=== PATIENT | female | born 2000 | race Caucasian/White ===

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

== ENCOUNTER 2021-03-12 18:27 | Emergency (ER) | payer OTHER ==
[~2021-03-12] VITALS: Ht 160 cm; Wt 54.5 kg
[~2021-03-12 18:27] MED LIST: AMOXICILLIN875 MG PO; INDERAL 10MG10 MG PO; MIRENA52 MG IY; PROZAC60 MG
[2021-03-12 20:21] LABS: BASO # 0.1 (0.0-0.2); BASO % 0.6 % (0.0-2.0); EOS # 0.3 (0.0-0.7); EOS % 3.4 % (0-4.0); HEMATOCRIT 42.1 % (35.0-45.0); HEMOGLOBIN 14.1 g/dl (12.0-15.0); LYMPH # 2.5 (1.2-3.4); LYMPH % 26.4 % (20.0-51.0); MEAN CELL VOLUME 91 fl (80.0-95.0); MEAN CORPUSCULAR HEMOGLOBIN 31 pg (26.0-32.0); MEAN CORPUSCULAR HGB CONC 34 g/dl (33.0-37.0); MONO # 0.6 (0.1-0.6); MONO % 6.3 % (1.7-9.3); PLATELET COUNT 330 K/mm3 (130-400); RED BLOOD COUNT 4.62 M/mm3 (4.10-5.30); REDCELL DISTRIBUTION WIDTH-CV 12.6 % (11.5-14.5)
[2021-03-12 20:44] LABS: ALBUMIN 4.1 gm/dL (3.5-5.0); BILIRUBIN,TOTAL 0.4 mg/dL (0.2-1.2); CALCIUM 9.3 mg/dL (8.4-10.2); CREATININE, serum 0.79 mg/dL (0.57-1.11); POTASSIUM 3.5 mmol/L (3.5-4.5); TOTAL PROTEIN 7.1 gm/dL (6.2-8.1)
[2021-03-12 21:23] VITALS: BP 108/73; PULSE 72; TEMP 97.8
== END 2021-03-12 21:23 | disposition home or self-care (01) ==
LOC: COL.ER 18:27
PROVIDERS: Family Medicine
DX: S49.91XA Unspecified injury of right shoulder and upper arm, initial encounter (principal); Q78.0 Osteogenesis imperfecta; W86.8XXA Exposure to other electric current, initial encounter

== ENCOUNTER → 2021-08-20 | Outpatient (CLI) | payer OTHER ==
[2021-08-20 11:54] LABS: HEMATOCRIT 43.6 % (35.0-45.0); HEMOGLOBIN 14.4 g/dl (12.0-15.0); MEAN CELL VOLUME 92 fl (80.0-95.0); MEAN CORPUSCULAR HEMOGLOBIN 30 pg (26-32); MEAN CORPUSCULAR HGB CONC 33 g/dl (33.0-37.0); MEAN PLATELET VOLUME 9.2 fl (7.4-10.4); PLATELET COUNT 287 K/mm3 (130-400); RED BLOOD COUNT 4.73 M/mm3 (4.10-5.30); REDCELL DISTRIBUTION WIDTH-CV 13.3 % (11.5-14.5)
[2021-08-20 12:06] LABS: CALCIUM 8.9 mg/dL (8.4-10.2); CREATININE, serum 0.72 mg/dL (0.57-1.11); POTASSIUM 3.9 mmol/L (3.5-4.5)
== END ==
LOC: COL.LAB 10:43
PROVIDERS: Physician Assistant
DX: R07.89 Other chest pain (principal); R07.1 Chest pain on breathing; Z86.16 Personal history of COVID-19

== ENCOUNTER 2022-09-06 19:45 | Emergency (ER) | payer OTHER ==
[~2022-09-06] VITALS: Ht 160 cm; Wt 47.7 kg
[~2022-09-06 19:45] MED LIST changes: +BENTYL 20MG20 MG/TAB PO; +EMGALITY120 MG/1 M SQ; +ZOFRAN ODT4 MG PO; +ZOLOFT 50MG50 MG PO
[2022-09-06 20:25] LABS: BASO % 0.4 % (0.0-2.0); EOS # 0.7 K/mm3 (0.0-0.7); EOS % 6.6 % (0.0-4.0); GRAN # 4.7 K/mm3 (1.4-6.5); GRAN % 45.9 % (42.2-75.2); HEMATOCRIT 40.9 % (37.0-47.0); HEMOGLOBIN 14.3 g/dl (12.5-16.0); LYMPH # 4.3 K/mm3 (1.2-3.4); LYMPH % 41.5 % (20.0-51.0); MEAN CELL VOLUME 87 fl (80.0-100.0); MEAN CORPUSCULAR HEMOGLOBIN 30 pg (27-31); MEAN CORPUSCULAR HGB CONC 35 g/dl (33.0-37.0); MEAN PLATELET VOLUME 9.5 fl (7.4-10.4); MONO # 0.6 K/mm3 (0.1-0.6); MONO % 5.4 % (1.7-9.3); PLATELET COUNT 372 K/mm3 (130-400)
[2022-09-06 20:32] LABS: SQUAMOUS EPITHELIAL 0-2 /hpf (0-10); URINE BACTERIA Rare /hpf (NONE SEEN); URINE RBC 0-2 /hpf (0-2); URINE WBC 0-2 /hpf (0-2)
[2022-09-06 20:34] LABS: COLLECTION METHOD CLEAN CATCH; URINE APPEARANCE Clear (CLEAR/HAZY); URINE BLOOD Negative (NEGATIVE); URINE COLOR Yellow (YELLOW); URINE GLUCOSE Negative (NEGATIVE); URINE KETONE Negative (NEGATIVE); URINE NITRATE Negative (NEGATIVE); URINE PROTEIN(semi-quant) Negative (NEGATIVE); URINE UROBILINOGEN 0.2 E.U/dL (0.2-1.0)
[2022-09-06 20:48] LABS: ALANINE AMINOTRANSFERASE 17 U/L (0-55); ALBUMIN 4.5 gm/dL (3.5-5.0); ALKALINE PHOSPHATASE 80 U/L (40-150); ANION GAP 13 mmol/L (7-16); AST,SGOT 22 U/L (5-34); BILIRUBIN,TOTAL 0.3 mg/dL (0.2-1.2); BLOOD UREA NITROGEN 7 mg/dL (7-19); CARBON DIOXIDE 21 mmol/L (22-29); CHLORIDE 107 mmol/L (98-107); CREATININE, serum 0.73 mg/dL (0.57-1.11); GLUCOSE 97 mg/dL (70-99); POTASSIUM 3.8 mmol/L (3.5-4.5); SODIUM 141 mmol/L (136-145); TOTAL PROTEIN 7.8 gm/dL (6.2-8.1)
[2022-09-06 20:54] LABS: TROPONIN-I < 0.010 ng/mL (0.00-0.033)
[2022-09-06] MEDS ORDERED: PROTONIX 40MG T40 MG PO (21:55)
[2022-09-06 22:20] VITALS: BP 98/58; PULSE 71; TEMP 98.3
== END 2022-09-06 22:20 | disposition home or self-care (01) ==
LOC: COL.ER 19:45
PROVIDERS: Emergency Medicine
DX: R07.89 Other chest pain (principal)

== ENCOUNTER → 2023-03-18 | Outpatient (CLI) | payer OTHER ==
[~2023-03-18] MED LIST changes: +PROTONIX 40MG T40 MG PO; +ROXICODONE 55 MG/TAB PO
== END ==
LOC: CANSCHCLI → COL.RAD 07:14
DX: D73.5 Infarction of spleen (principal)

== ENCOUNTER 2023-10-25 15:50 | Emergency (ER) | payer SELFPAY ==
[~2023-10-25] VITALS: Ht 160 cm; Wt 56.8 kg
[~2023-10-25 15:50] MED LIST changes: +TORADOL 10MG TA10 MG PO
[2023-10-25 15:59] VITALS: TEMP 97.5
[2023-10-25] MEDS ORDERED: Ondansetron 4 MG/2 ML VIAL IV ONE (16:15)
[2023-10-25] MEDS ORDERED: LR 1,000 ML IV ONE (16:15)
[2023-10-25] MEDS ORDERED: fentaNYL 50 MCG/ML 2 ML VIAL IV ONE (16:15)
[2023-10-25 16:33] LABS: BASO # 0.1 K/mm3 (0.0-0.2); BASO % 0.9 % (0.0-2.0); EOS # 1.3 K/mm3 (0.0-0.7); EOS % 14.2 % (0.0-4.0); GRAN # 4.7 K/mm3 (1.4-6.5); GRAN % 52.9 % (42.2-75.2); HEMOGLOBIN 13.7 g/dl (12.5-16.0); LYMPH # 2.3 K/mm3 (1.2-3.4); LYMPH % 25.9 % (20.0-51.0); MEAN CELL VOLUME 93 fl (80.0-100.0); MEAN CORPUSCULAR HEMOGLOBIN 31 pg (27-31); MEAN CORPUSCULAR HGB CONC 33 g/dl (33.0-37.0); MEAN PLATELET VOLUME 9.5 fl (7.4-10.4); MONO # 0.5 K/mm3 (0.1-0.6); MONO % 5.9 % (1.7-9.3); PLATELET COUNT 295 K/mm3 (130-400); RED BLOOD COUNT 4.43 M/mm3 (4.10-5.30); REDCELL DISTRIBUTION WIDTH-CV 12.3 % (11.5-14.5)
[2023-10-25 16:45] LABS: ALBUMIN 3.9 g/dL (3.5-5.0); BILIRUBIN,TOTAL 0.5 mg/dL (0.2-1.2); C-REACTIVE PROTEIN 0.09 mg/dL (0.00-0.50); CALCIUM 9.6 mg/dL (8.4-10.2); CREATININE, serum 0.94 mg/dL (0.57-1.11); POTASSIUM 4.3 mEq/L (3.5-4.5); TOTAL PROTEIN 6.8 g/dl (6.2-8.1)
[2023-10-25 16:47] LABS: COLLECTION METHOD CLEAN CATCH
[2023-10-25] MEDS ORDERED: ZOFRAN ODT4 MG PO (17:17)
[2023-10-25 17:18] LABS: PH 6.5 (5.0-8.5); URINE APPEARANCE CLOUDY (CLEAR/HAZY); URINE BLOOD NEGATIVE (NEGATIVE); URINE COLOR YELLOW (YELLOW); URINE GLUCOSE NEGATIVE (NEGATIVE); URINE KETONE NEGATIVE (NEGATIVE); URINE NITRATE NEGATIVE (NEGATIVE); URINE PROTEIN(semi-quant) NEGATIVE (NEGATIVE); URINE UROBILINOGEN 0.2 E.U/dL (0.2-1.0)
[2023-10-25 17:30] VITALS: BP 112/74; PULSE 53
== END 2023-10-25 17:30 | disposition home or self-care (01) ==
LOC: COL.ER 15:50
PROVIDERS: Family Medicine
DX: R10.31 Right lower quadrant pain (principal); R11.2 Nausea with vomiting, unspecified
CPT/HCPCS: J2405; J3010; J7120